=== PATIENT | male | born 1960 | race Caucasian/White ===

== ENCOUNTER → 2023-10-25 12:16 | Outpatient (REF) | payer MEDICARE, OTHER, SELFPAY | LOC: HWRAD 12:16 | PROVIDERS: ATTENDING PHYSICIAN Nurse Practitioner Adult Health | DX: M24.50 Contracture, unspecified joint (principal) | CPT/HCPCS: 72110 ==

== ENCOUNTER → 2024-02-04 12:27 | Outpatient (REF) | payer MEDICARE, OTHER, SELFPAY | LOC: HWRAD 12:27 | PROVIDERS: ATTENDING PHYSICIAN Nurse Practitioner Adult Health | DX: M25.562 Pain in left knee (principal); M25.561 Pain in right knee | CPT/HCPCS: 73564 ==

== ENCOUNTER → 2024-02-11 13:56 | Outpatient (REF) | payer MEDICARE, OTHER, SELFPAY | LOC: RAD 13:56 | PROVIDERS: ATTENDING PHYSICIAN Nurse Practitioner Adult Health | DX: D17.1 Benign lipomatous neoplasm of skin and subcutaneous tissue of trunk (principal); M25.562 Pain in left knee | CPT/HCPCS: 76705 ==

== ENCOUNTER 2024-10-19 11:49 | Emergency (ER) | payer MEDICARE, OTHER, SELFPAY ==
[2024-10-19 11:57] VITALS: BP 132/94
--- NOTE | 2024-10-19 13:09 | ED.GENMED ---
History of Present Illness
General
Chief Complaint: Musculo-Skeletal Complaint
Source: patient
Time Seen by Provider: 10/19/24 12:52
History of Present Illness
History of Present Illness:
64-year-old male presents to the emergency room complaining of pain in his neck that radiates down to his left arm. He also has some paresthesias. Paresthesias exist along the ulnar aspect of his forearm and his 5th and 4th digits. No recent
injury. Patient has a history of high cholesterol. No other significant medical issues. He only takes simvastatin. Patient is right-hand dominant.
Past History
Past History
ED Past Medical History: Hypercholesterolemia
ED Past Surgical History: None
Social History
Tobacco: Non-smoker
Alcohol: Occasional
Drug: None
Personal:
Living: with family
Family History
Family History: Other (nc)
Phy Exam
Physical Exam
Physical Exam:
General: Awake, Alert, Oriented X3. No acute distress.
Vitals: unremarkable
Head: Atraumatic
Eyes: Pupils equal, EOMI
Throat: Airway intact, no exudates
Neck: Trachea midline, no midline tenderness to palpation on the cervical spine
Lungs: Clear and equal b/l
Heart: Regular rate, no murmurs
Neuro: Cranial nerves intact, muscle strength equal bilaterally, cerebellar exam normal
Skin: Warm, dry, no rash
Extremities: pulses equal b/l, no edema. No interosseous weakness
Course
Orders/Labs/Results
Orders:
Orders
10/19/24 13:07
CT Cervical Spine W/o Iv Contr Urgent
Comment:
Reason For Exam: neck pain, left arm pain
10/19/24 13:08
Oxycodone [Roxicodone] 5 mg PO NOW STA
Vital Signs
Initial and Last Documented VS:
Initial Vital Signs
Temp Pulse Resp BP Pulse Ox
97.9 F 75 18 132/94 95
10/19/24 11:57 10/19/24 11:57 10/19/24 11:57 10/19/24 11:57 10/19/24 11:57
Last Documented Vital Signs
Temp Pulse Resp BP Pulse Ox
97.9 F 75 16 134/77 98
10/19/24 11:57 10/19/24 18:01 10/19/24 18:01 10/19/24 18:01 10/19/24 18:01
MDM/Problems Addressed
Differential Diagnosis Includes:
Cervical radiculopathy, muscle spasm, bony abnormality such as compression fracture or mass
MDM/Problems Addressed:
Patient presents with cervical radiculopathy. CT here shows degenerative changes particular at C6-C7. There is neuroforaminal narrowing particular on the left. Overall seems consistent with his cervical radiculopathy. Communicated with Dr. Cano
who is on-call for neurosurgery and she can see the patient in the next few days. Sent a message to the patient's primary care doctor to see if she can arrange for a short-term MRI.
*Radiology
Radiology exam reviewed: radiology read reviewed
*Pulse Oximetry
SaO2: 95
Oxygen Mode of Delivery: Room air
Patient hypoxic: no
*Critical Care Note
Total Time (30-74mins, 75-104mins- exclusive of procedures): Not Applicable
ED Attending Note
-
Portions of this chart may have been created with voice recognition software.� Occasional wrong word or��sound alike� substitutions may have occurred due to the inherent limitations of voice recognition software.
Discharge Plan
Departure
Patient Disposition: Home (Routine Discharge)
Date of Disposition: 10/19/24
Time of Disposition: 17:44
Patient with high blood pressure during this ER visit?: No
Condition: Good
Discharge Problem:
Cervical radiculopathy
Instructions: Radiculopathy of the neck and back (including sciatica)
Prescriptions:
New
methylprednisolone [Medrol (Henry)] 4 mg tablets,dose pack
See Rx Instructions .ROUTE .COMPLEX Qty: 21 0RF
Rx Instructions:
for 6 days
oxycodone 5 mg tablet
5 mg PO Q6H PRN (Reason: Pain) Qty: 15 0RF
No Action
simvastatin [Zocor] 40 MG tablet
40 mg PO HS
Saccharomyces boulardii [Probiotic (S.boulardii)] 250 mg Capsule
250 mg PO DAILY
Referrals:
Wilman Croft CRNP [Family Provider, Internal Medicine]
Joaquina Cano MD [Active, Neurosurgery]
Activity Restrictions/Additional Instructions:
The CAT scan does not show any significant bony abnormalities. They are able to see that there are arthritic changes causing narrowing in the lower cervical spine. I have communicated with one of our neurosurgeons, Dr. Cano, who can see you in
her office this week. I have given you her contact information. You should also contact your primary care doctor tomorrow morning for them to order an MRI. I sent her a message through our texting system as well.
Interventions
Interventions:
*Risk Screen - Suicide Last Done: 10/19/24 11:57
*General Assessment Last Done: 10/19/24 11:57
*Neglect/Abuse Screening Last Done: 10/19/24 11:57
*ED- Fall Risk Assessment Last Done: 10/19/24 12:14
*ED COVID-19 Vaccine History Last Done: 10/19/24 12:14
*Nursing Disposition Last Done: 10/19/24 18:01
ED-Musculoskeletal Assessment Last Done: 10/19/24 12:14
Discharge Date and Time
Discharge Date/Time: 10/19/24 18:01
Print Language: ICELANDIC
[2024-10-19] MEDS: ROXICODONE 5 MG PO (13:21)
[2024-10-19 14:02] VITALS: BP 128/89
[2024-10-19 18:01] VITALS: BP 134/77
== END 2024-10-19 18:01 | disposition home or self-care (01) ==
LOC: EMR 11:49
PROVIDERS: EMERGENCY PHYSICIAN Emergency Medicine; FAMILY PHYSICIAN Nurse Practitioner Adult Health
DX: M47.22 Other spondylosis with radiculopathy, cervical region (principal); E78.00 Pure hypercholesterolemia, unspecified
CPT/HCPCS: 99284; 72125

== ENCOUNTER 2024-11-03 11:13 | Outpatient (RCR) | payer MEDICARE, OTHER, SELFPAY | END 2024-11-03 23:59 | disposition home or self-care (01) | LOC: RPT 11:13 | PROVIDERS: ATTENDING PHYSICIAN Nurse Practitioner Adult Health | DX: M54.12 Radiculopathy, cervical region (principal); M89.8X1 Other specified disorders of bone, shoulder; S29.019D Strain of muscle and tendon of unspecified wall of thorax, subsequent encounter; S16.1XXD Strain of muscle, fascia and tendon at neck level, subsequent encounter; Z73.6 Limitation of activities due to disability; M62.81 Muscle weakness (generalized) | CPT/HCPCS: 97010; 97110; 97112; 97140; 97162; 97535 ==

== ENCOUNTER 2024-11-07 08:36 | Outpatient (RCR) | payer MEDICARE, OTHER, SELFPAY | END 2024-11-07 23:59 | disposition home or self-care (01) | LOC: RPT 08:36 | PROVIDERS: ATTENDING PHYSICIAN Nurse Practitioner Adult Health | DX: M54.12 Radiculopathy, cervical region (principal); M89.8X1 Other specified disorders of bone, shoulder; S29.019D Strain of muscle and tendon of unspecified wall of thorax, subsequent encounter; S16.1XXD Strain of muscle, fascia and tendon at neck level, subsequent encounter; Z73.6 Limitation of activities due to disability; M62.81 Muscle weakness (generalized) | CPT/HCPCS: 97010; 97012; 97112 ==

== ENCOUNTER 2024-12-24 06:52 | Outpatient (RCR) | payer MEDICARE, OTHER, SELFPAY | END 2024-12-24 23:59 | disposition home or self-care (01) | LOC: RPT 06:52 | PROVIDERS: ATTENDING PHYSICIAN Nurse Practitioner Adult Health | DX: M54.12 Radiculopathy, cervical region (principal); M89.8X1 Other specified disorders of bone, shoulder; S29.019D Strain of muscle and tendon of unspecified wall of thorax, subsequent encounter; S16.1XXD Strain of muscle, fascia and tendon at neck level, subsequent encounter; X58.XXXD Exposure to other specified factors, subsequent encounter; Z73.6 Limitation of activities due to disability; M62.81 Muscle weakness (generalized) | CPT/HCPCS: 97010; 97012; 97110; 97112; 97140; 97530 ==

== ENCOUNTER → 2025-01-20 12:48 | Outpatient (REF) | payer MEDICARE, OTHER, SELFPAY | LOC: RAD 12:48 | PROVIDERS: ATTENDING PHYSICIAN Neurological Surgery; FAMILY PHYSICIAN Nurse Practitioner Adult Health | DX: M79.2 Neuralgia and neuritis, unspecified (principal) | CPT/HCPCS: 72052 ==

== ENCOUNTER → 2025-01-23 07:50 | Outpatient (REF) | payer MEDICARE, OTHER, SELFPAY | LOC: EMG 07:50 | PROVIDERS: ATTENDING PHYSICIAN Neurological Surgery; FAMILY PHYSICIAN Nurse Practitioner Adult Health | DX: M79.2 Neuralgia and neuritis, unspecified (principal); R20.0 Anesthesia of skin; G56.22 Lesion of ulnar nerve, left upper limb | CPT/HCPCS: 95886; 95910 ==